=== PATIENT | female | born 1975 | race Hispanic/Latino ===

== ENCOUNTER 2018-08-31 20:38 | Emergency (ER) | payer OTHER, BC ==
[~2018-08-31] VITALS: Ht 149.9 cm; Wt 58.1 kg
[2018-08-31] MEDS ORDERED: ONDANSETRON HCL INJ 2 MG/ML VIAL IV STA (20:58)
[2018-08-31] MEDS ORDERED: MORPHINE SULFATE INJ 4 MG/ML INJ IV ONE (21:00)
--- NOTE | 2018-08-31 22:33 | Diagnostic Imaging Report ---
EXAM: CT ABDOMEN AND PELVIS WITH IV CONTRAST INDICATION: Abdominal pain COMPARISON: None TECHNIQUE: The abdomen and pelvis were scanned using a multidetector helical scanner. Coronal and sagittal reformations were obtained. Dose modulation, iterative reconstruction, and/or weight based adjustment of the mA/kV was utilized to reduce the radiation dose to as low as reasonably achievable. Routine protocol performed. IV Contrast: 100 cc Isovue-370 Oral Contrast: None CTDIvol has been reviewed. It is below the limits set by the Radiation Protocol Committee (RPC). FINDINGS: LOWER THORAX: No consolidations LIVER: No masses BILIARY: Normal gallbladder. No ductal dilation. SPLEEN: No masses PANCREAS: No masses ADRENALS: No nodules KIDNEYS: No enhancing masses. No hydronephrosis. GI TRACT: No wall thickening or obstruction. Normal appendix. VESSELS: Unremarkable PERITONEUM/RETROPERITONEUM: Trace free pelvic fluid. LYMPH NODES: No lymphadenopathy REPRODUCTIVE ORGANS: The uterus is retroverted retroflexed. Right ovarian simple homogeneous oval cyst measuring 4.3 x 3.9 x 3 cm. BLADDER: Normal SOFT TISSUES: Bilateral breast implants. BONES: No suspicious bone lesions. IMPRESSION: 1. Normal appearance of the bowel. No evidence of appendicitis. 2. There is a simple-appearing right ovarian cyst measuring 4.3 cm. Adjacent trace pelvic fluid could be physiologic or secondary to ruptured cyst in the appropriate clinical setting. Signed by: Dr. Antoinette Mares M.D. on 08/31/2018 10:30 PM
[2018-09-01] MEDS ORDERED: MORPHINE SULFATE INJ 4 MG/ML INJ IV ONE
[2018-09-01] MEDS ORDERED: ONDANSETRON HCL INJ 2 MG/ML VIAL IV STA (00:26)
--- NOTE | 2018-09-01 01:12 | Diagnostic Imaging Report ---
EXAM: Transvaginal ultrasound with duplex imaging INDICATION: Pelvic pain COMPARISON: CT of the abdomen and pelvis August 31, 2018 TECHNIQUE: Transverse and sagittal transvaginal galvez-scale and color doppler sonographic images of the pelvis were obtained. Duplex imaging with spectral waveform analysis of the ovarian arterial inflow and venous outflow was obtained. CLINICAL HISTORY: Last menstrual period: August 22, 2018 FINDINGS: UTERUS: 7 x 4 x 3.5 cm, retroverted retroflexed Normal appearance of the cervix. No uterine masses. ENDOMETRIUM: 0.7 cm Homogeneous echotexture without focal thickening. RIGHT OVARY: 5.2 x 3.1 x 4.9 cm. Venous outflow was identified in the right ovary. Arterial inflow not documented. Simple cyst measuring 4.3 x 2.6 x 4.4 cm. LEFT OVARY: 2.4 x 1.4 x 1.5 cm. Arterial inflow was identified in the left ovary. Venous outflow not documented. No abnormal left ovarian cyst or mass. No adnexal masses. Trace fluid in the cul-de-sac. IMPRESSION: 1. Simple 4.4 cm right ovarian cyst. 2. Limited duplex evaluation secondary to technically difficult exam. Venous outflow was identified in the right ovary. Arterial inflow was not able to be documented. Arterial inflow was identified in the left ovary. Venous outflow of the left ovary not able to be documented. Consider short-term follow-up exam. If follow-up exam is performed, including transabdominal view may provide additional information. 3. Trace amount of free pelvic fluid. Signed by: Dr. Antoinette Mares M.D. on 09/01/2018 1:08 AM
== END 2018-09-01 00:53 | disposition home or self-care (01) ==
LOC: FSED 20:38
DX: R10.31 Right lower quadrant pain (principal); R10.2 Pelvic and perineal pain; N83.201 Unspecified ovarian cyst, right side; R11.2 Nausea with vomiting, unspecified
CPT/HCPCS: 74177; 76830; 76856; 80053; 81003; 81025; 85025; 99284; J2270; J2405